=== PATIENT | female | born 1950 | race Caucasian/White ===

== ENCOUNTER 2020-04-18 12:50 | Emergency (ER) | payer MEDICARE ==
[~2020-04-18] VITALS: Ht 170.2 cm; Wt 107.3 kg
[~2020-04-18 12:50] MED LIST: ACET-1600 PO; CHOL2000 PO; HYDR-3237 PO; HYDR-3245 PO; LEVO112T4 PO; LOSA1TAB19 PO; METO1TAB6 PO; NABU750T PO; OXYC1TAB8 PO; POTA10TA11 PO; POTASSIUM PO; SERT100T32 PO
--- NOTE | 2020-04-18 13:42 | NUR ---
PT PRESENTS TO ED [facility] AFTER PICKING SOMETHING UP AND LOSING BALANCE 2 DAYS AGO. PT SAID SHE LANDED ON BUTTOCKS AND THEN HIT HEAD, DENIES LOC, DENIES NECK PAIN/TENDERNESS. PT DENIES BOWEL/BLADDER DYSFUNCTION. PT PLACED ON BP AND SPO2 MONITORS. CALL LIGHT IN REACH. AWAITING PROVIDER AND ORDERS.
--- NOTE | 2020-04-18 14:20 | NUR ---
PT TO CT.
--- NOTE | 2020-04-18 14:50 | NUR ---
REPORT GIVEN TO DARVIN OLSEN AT BEDSIDE. PT IS A&O, RESPS EVEN AND UNLABORED. FAMILY AT BEDSIDE. CT COMPLETED, AWAITING XRAYS AND DISPO.
--- NOTE | 2020-04-18 14:50 | NUR ---
BEDSIDE REPORT RECEIVED FROM DARVIN FERNANDEZ. PLAN OF CARE DISCUSSED
[2020-04-18] MEDS ORDERED: HYDROcodone/APAP 5/325 TABLET ONE (15:19)
[2020-04-18] MEDS ORDERED: HYDROcodone/APAP 5/325 TABLET PO ONE (15:30)
--- NOTE | 2020-04-18 15:33 | NUR ---
PATIENT MEDICATED PER EMAR, TOLERATED WELL. MONITORING IN PLACE, VSS, NADN.
--- NOTE | 2020-04-18 15:54 | NUR ---
PATIENT BACK FROM XRAY
--- NOTE | 2020-04-18 16:10 | NUR ---
ALL RESULTS BACK, PATIENT UP FOR RECHECK
--- NOTE | 2020-04-18 17:03 | NUR ---
Patient given discharge instructions and they have confirmed that they understand the instructions. Patient ambulatory with steady gait.
== END 2020-04-18 17:12 | disposition home or self-care (01) ==
LOC: ED 17:09
DX: G89.11 Acute pain due to trauma (principal); M54.5 Low back pain; M54.6 Pain in thoracic spine; R11.0 Nausea; Z87.891 Personal history of nicotine dependence; W01.0XXA Fall on same level from slipping, tripping and stumbling without subsequent striking against object, initial encounter; Y93.89 Activity, other specified; Y92.098 Other place in other non-institutional residence as the place of occurrence of the external cause; Y99.8 Other external cause status
CPT/HCPCS: 70450; 72072; 72110; 72220; 99284

== ENCOUNTER 2020-05-04 19:03 | Emergency (ER) | payer MEDICARE ==
[~2020-05-04] VITALS: Ht 172.7 cm; Wt 106.6 kg
--- NOTE | 2020-05-04 19:54 | NUR ---
THIS IS A 69Y F THAT WAS PULLING WEEDS IN HER GARDEN AND FELL ON HER L WRIST. CMS INTACT. SWELLING NOTED. XRAY AT BEDSIDE AT THIS TIME
[2020-05-04 21:09] VITALS: BP 162/57
--- NOTE | 2020-05-04 21:24 | NUR ---
PT RESTING ON GURNEY NO NEEDS AT THIS TIME. STS SHE FEELS BETTER AFTER THE SPLINT WAS APPLIED. AWAITING CT READ FOR FURTHER ORDERS AND DISPO
== END 2020-05-04 22:27 | disposition home or self-care (01) ==
LOC: ED 21:18
DX: S52.572A Other intraarticular fracture of lower end of left radius, initial encounter for closed fracture (principal); Z87.891 Personal history of nicotine dependence; W01.0XXA Fall on same level from slipping, tripping and stumbling without subsequent striking against object, initial encounter; Y93.89 Activity, other specified; Y92.009 Unspecified place in unspecified non-institutional (private) residence as the place of occurrence of the external cause; Y99.8 Other external cause status
CPT/HCPCS: 29125; 99284